=== PATIENT | female | born 1960 | race Caucasian/White ===

== ENCOUNTER → 2023-02-19 | Outpatient (CLI) | payer MEDICAID ==
--- NOTE | 2023-02-22 08:13 | MM ---
Reason for Exam: Screening (asymptomatic). Patient History: Menarche at age 11. First Full-Term at age 24. Postmenopausal. Risk Values: Paris 5 year model risk: 1.7%. NCI Lifetime model risk: 7.4%. Tissue Density: There are scattered fibroglandular densities. Findings: Analyzed By CAD. Masses in the right breast: * The first measuring 8 mm 10.4 cm from the nipple upper outer quadrant at posterior depth. * The second measuring 9 mm 3.8 cm from the nipple in her upper quadrant at anterior/middle depth. Overall Assessment: Incomplete: need additional imaging evaluation, BI-RAD 0 Management: Diagnostic Breast Ultrasound of the right breast. [facility] will attempt to contact patient to return for supplemental views and ultrasound if indicated. Patient should continue monthly self-breast exams. A clinical breast exam by your physician is recommended on an annual basis. This exam should not preclude additional follow-up of suspicious palpable abnormalities. Note on Paris scores and lifetime risk: 1. A Paris score greater than 3% is considered moderate risk. If this is the case, consider specialist referral to assess eligibility for a risk reducing agent. 2. If overall lifetime risk for the development of breast cancer is 20% or higher, the patient may qualify for future screening with alternating mammogram and breast MRI. Electronically signed and approved by: Gregg Valladares DO
== END | disposition home or self-care (01) ==
LOC: RADMAMWWP 07:19
PROVIDERS: ATTEND Family Medicine
DX: Z12.31 Encounter for screening mammogram for malignant neoplasm of breast (principal); Z78.0 Asymptomatic menopausal state
CPT/HCPCS: 77067

== ENCOUNTER → 2023-03-02 | Outpatient (CLI) | payer MEDICAID ==
--- NOTE | 2023-03-02 17:46 | CA ---
Transthoracic Echo Report Name: Tanya Berry Age: 62 Gender: F : 1960 Exam Date: 03/02/2023 13:17 Exam Location: [facility] Ht (in): 67 Wt (lb): 208 Ordering Physician: Theodore Castaneda MD Attending/Referring Phys: [employer] Amy Nolen RDCS Procedure CPT: Indications: R01.1 Cardiac Hx: Technical Quality: Fair Contrast 1: Total Dose (mL): Contrast 2: Total Dose (mL): MEASUREMENTS (Male / Female) Normal Values 2D ECHO LV Diastolic Diameter PLAX 3.0 cm 4.2 - 5.9 / 3.9 - 5.3 cm LV Systolic Diameter PLAX 1.7 cm IVS Diastolic Thickness 1.2 cm 0.6 - 1.0 / 0.6 - 0.9 cm LVPW Diastolic Thickness 1.2 cm 0.6 - 1.0 / 0.6 - 0.9 cm LV Relative Wall Thickness 0.8 RV Internal Dim ED PLAX 3.6 cm LA Volume 54.8 cm??? 18 - 58 / 22 - 52 cm??? M-MODE Aortic Root Diameter MM 2.6 cm LA Systolic Diameter MM 3.3 cm LA Ao Ratio MM 1.3 AV Cusp Separation MM 1.7 cm DOPPLER AV Peak Velocity 164.2 cm/s AV Peak Gradient 10.8 mmHg AV Mean Velocity 116.0 cm/s AV Mean Gradient 5.9 mmHg AV Velocity Time Integral 36.7 cm LVOT Peak Velocity 118.3 cm/s LVOT Peak Gradient 5.6 mmHg LVOT Velocity Time Integral 25.6 cm MV Area PHT 3.1 cm??? Mitral E Point Velocity 112.3 cm/s Mitral A Point Velocity 87.9 cm/s Mitral E to A Ratio 1.3 MV Deceleration Time 244.8 ms MV E' Velocity 7.7 cm/s Mitral E to MV E' Ratio 14.6 TR Peak Velocity 284.8 cm/s TR Peak Gradient 32.4 mmHg Right Ventricular Systolic Press 36.7 mmHg FINDINGS Left Ventricle Mildly increased left ventricular wall thickness. Left ventricular cavity size normal. Normal left ventricular systolic function with no obvious regional wall motion abnormalities. Left ventricular ejection fraction is estimated at 55-60 %. Right Ventricle Mild right ventricular dilatation. Mild pulmonary hypertension. Right Atrium Normal right atrial size. Left Atrium Mildly increased left atrial volume. Mitral Valve Structurally normal mitral valve. Mild mitral regurgitation. Aortic Valve Trileaflet aortic valve. Aortic valve sclerosis. No aortic valve stenosis or regurgitation. Tricuspid Valve Structurally normal tricuspid valve. Mild tricuspid regurgitation. Pulmonic Valve Trace pulmonic regurgitation. Pericardium No pericardial effusion. Aorta Normal size aortic root and proximal ascending aorta. CONCLUSIONS Normal LV systolic function Mild mitral regurgitation Previewed by: Dr. Han Thomas MD (Electronically Signed) Final Date: 02 March 2023 17:45
== END | disposition home or self-care (01) ==
LOC: RADECHMAIN 13:08
PROVIDERS: ATTEND Family Medicine
DX: I08.1 Rheumatic disorders of both mitral and tricuspid valves (principal); I27.20 Pulmonary hypertension, unspecified; R01.1 Cardiac murmur, unspecified
CPT/HCPCS: 93306

== ENCOUNTER → 2023-03-02 | Outpatient (CLI) | payer MEDICAID ==
--- NOTE | 2023-03-02 14:23 | USB ---
Reason for Exam: Additional evaluation requested from abnormal screening. Patient History: Menarche at age 11. First Full-Term at age 24. Postmenopausal. Risk Values: Paris 5 year model risk: 1.7%. NCI Lifetime model risk: 7.4%. Technique: Method: Targeted. Prior Study Comparison: 02/19/2023 Bilateral MG screening mammo w CAD, [facility]. Findings: The upper outer quadrant of the right breast, the axilla of the right breast and the retroareolar of the right breast were scanned. Targeted ultrasound right breast from 9-1 o'clock with additional evaluation of the nipple axilla was performed. There is a heterogenous hypoechoic mass within the right breast at 10:00 10 cm of the nipple without internal color flow. This measures 0.9 x 0.6 x 0.6 cm with edge shadowing identified. Angular margins demonstrated. Additional circumscribed anechoic thin-walled lesion within the right breast 1:00 for 4 cm from the nipple measuring 0.8 x 0.9 x 0.6 cm. Parallel orientation. Possible cyst however there is poor posterior acoustic enhancement. Overall Assessment: Suspicious, BI-RAD 4 Management: Ultrasound Core Biopsy of the right breast. Diagnostic Breast Ultrasound of the right breast. Ultrasound core biopsy of the 10:00 right breast lesion. Ultrasound of the right breast in 6 months to revaluate the 1:00 possible cyst. A clinical breast exam by your physician is recommended on an annual basis and results should be correlated with mammographic findings. This exam should not preclude additional follow-up of suspicious palpable abnormalities. Results were given to the patient verbally at the time of exam. Electronically signed and approved by: Rod Li D.O.
== END | disposition home or self-care (01) ==
LOC: RADUSWWP 13:50
PROVIDERS: ATTEND Family Medicine
DX: R92.8 Other abnormal and inconclusive findings on diagnostic imaging of breast (principal); Z78.0 Asymptomatic menopausal state

== ENCOUNTER → 2023-03-10 | Day surgery (SDC) | payer MEDICAID ==
--- NOTE | 2023-03-16 12:06 | MM ---
Reason for Exam: Post Procedure Mammogram. Last screening mammogram was performed less than 1 month ago. Patient History: Menarche at age 11. First Full-Term at age 24. Postmenopausal. Risk Values: Paris 5 year model risk: 1.7%. NCI Lifetime model risk: 7.4%. Prior Study Comparison: 02/19/2023 Bilateral MG screening mammo w CAD, [facility]. Tissue Density: Right: There are scattered fibroglandular densities. Pathology Description: Location: 10 o'clock. Marker Left Behind. Needle Type: Mammotome Cores: 4 Skin Nicks: 1 Gauge: 13 The procedure of ultrasound guided core biopsy was explained to the patient. Benefits, alternatives, and risks were discussed. An informed consent was then obtained. A timeout was performed. The patient was placed in supine positioning for imaging and for the procedure. The overlying skin was prepped and draped in usual sterile fashion. Lidocaine was used as anesthetic into the skin and subcutaneous tissue up to area of concern in the right breast. A small skin denise was made with surgical scalpel. Under ultrasound guidance, a 12-gauge vacuum assisted biopsy gun device was used to obtain 4 core samples. A biopsy clip was left in lesion. Biopsy core marker was placed. The patient tolerated the procedure well without any immediate complication. The patient was kept in the radiology department for short stay after the procedure and then discharged home in stable condition. Postprocedure mammogram: The patient was transferred to mammography for physician ordered post procedure mammogram for clip placement verification. Impression: Successful ultrasound guided core biopsy of area of concern in the right breast, full pathology results to follow. Recommendations: 1. Recommendations are pending pathology results. Pathology Results: Result: Benign, Fibroadenoma. RIGHT BREAST, 10:00 POSITION, ULTRASOUND GUIDED CORE BIOPSY: Features compatible with fibroadenoma with myxoid change and sclerosing adenosis (see note). Notes It is noted an 03-02-23 right breast ultrasound revealed a hypoechoic mass within the 10:00 position of the right breast and an additional circumscribed lesion at the 1:00 position of the right breast. In order to further exclude carcinoma, immunohistochemistry is attempted with appropriate controls on the tissue block. Both smooth muscle myosin heavy chain and p63 stains each stain positive within myoepithelial cells surrounding available ductal structures, which supports a benign diagnosis. Clinical correlation with imaging studies is suggested, and additional tissue can be obtained, if deemed clinically necessary. Intradepartmental consultation with Dr. Yomi Silva is in agreement with the assessment. Overall Assessment: Benign Assessment: MG diagnostic mammo RT wo CAD - Right: Benign, BI-RAD 2. Management: Diagnostic Mammogram of the right breast in 6 months. Electronically signed and approved by: Ramon Reeves D.O. Radiologis
== END ==
LOC: RADUSWWP 10:00
PROVIDERS: ATTEND Family Medicine
DX: D24.1 Benign neoplasm of right breast (principal)
CPT/HCPCS: 88305; 88342; 88341; 77065; 19083; A4648

== ENCOUNTER → 2023-09-29 | Outpatient (CLI) | payer MEDICAID ==
--- NOTE | 2023-09-29 14:11 | MM ---
Reason for Exam: Follow-up at short interval from prior study. Last screening mammogram was performed 7 month(s) ago. Patient History: Menarche at age 11. First Full-Term at age 24. Postmenopausal. 03/10/2023, Benign US biopsy breast VAD RT on the right side. Risk Values: Paris 5 year model risk: 2.1%. NCI Lifetime model risk: 8.4%. Prior Study Comparison: 02/19/2023 Bilateral MG screening mammo w [facility]LR[facility], [facility]. 03/10/2023 Right MG diagnostic mammo RT wo CAD, [facility]. Tissue Density: Right: There are scattered areas of fibroglandular density. Findings: Analyzed By CAD. Microclip upper quadrant left breast from prior biopsy and associated nodularity. Other areas of circumscribed nodularity in the left breast remain unchanged for 6 months. Ongoing short interval follow-up recommended for these. Overall Assessment: Probably benign, BI-RAD 3 Management: Diagnostic Mammogram of both breasts in 6 months. Total one-year follow-up right breast and annual exam of the left breast. Results were given to the patient verbally at the time of exam. Patient should continue monthly self-breast exams. A clinical breast exam by your physician is recommended on an annual basis. This exam should not preclude additional follow-up of suspicious palpable abnormalities. Note on Paris scores and lifetime risk: 1. A Paris score greater than 3% is considered moderate risk. If this is the case, consider specialist referral to assess eligibility for a risk reducing agent. 2. If overall lifetime risk for the development of breast cancer is 20% or higher, the patient may qualify for future screening with alternating mammogram and breast MRI. Electronically signed and approved by: Miranda Austin M.D. Radiologist
--- NOTE | 2023-10-01 12:14 | US ---
EXAMINATION TYPE: US thyroid st tissue head/neck DATE OF EXAM: 09/29/2023 COMPARISON: NONE CLINICAL INDICATION: Female, 63 years old with history of E04.9 NONTOXIC GOITER, UNSPECIFIED; Goiter. GLAND SIZE: Right Lobe: 4.4 x 1.6 x 1.5 cm Overall Parenchyma: heterogenous Left Lobe: 5.1 x 1.3 x 1.1 cm Overall Parenchyma: heterogenous Isthmus Thickness: 0.28 cm NODULES RIGHT: # of nodules measured on right: 2 1. 0.8 X 0.7 x 0.4 cm, mid lateral, solid or almost completely solid, hypoechoic TR 4 nodule, which is wider than tall, with smooth margins, with echogenic foci. Prior size: No prior 2. 0.9 X 0.9 x 0.6 cm, upper mid, solid or almost completely solid, hypoechoic TR 4 nodule, which i s wider than tall, with smooth margins, without echogenic foci. Prior size: No prior LEFT: # of nodules measured on left: 2 1. 0.7 X 0.8 x 0.5 cm, mid lateral, solid or almost completely solid, hypoechoic TR 4 nodule, which is wider than tall, with smooth margins, without echogenic foci. Prior size: No prior 2. 0.6 X 0.6 x 0.4 cm, lower medial, cystic or almost completely cystic, anechoic TR2 nodule, whic h is wider than tall, with smooth margins, without echogenic foci. Prior size: No prior ISTHMUS: # of nodules measured in the isthmus: 0 Bilateral neck scanned, no evidence of lymphadenopathy. IMPRESSION: A few scattered TR4 nodules on both sides, largest measuring 9 mm on the right and 8 mm on the left. 2017 ACR TI-RADS LEVEL: TR-RADS 4 - Moderately Suspicious: Follow if > 1 cm, FNA if > 1.5 cm *Highest TI-RADS level nodule reported
== END | disposition home or self-care (01) ==
LOC: RADMAMWWP 13:49
PROVIDERS: ATTEND Family Medicine
DX: E04.2 Nontoxic multinodular goiter (principal); R92.2 Inconclusive mammogram; Z78.0 Asymptomatic menopausal state
CPT/HCPCS: 76536; 77061; 77065